=== PATIENT | female | born 1985 | race Caucasian/White ===

== ENCOUNTER 2016-10-16 16:39 | Emergency (ER) ==
[2016-10-16 16:53] VITALS: BP 125/79; TEMP 100.3; BMI 18.7
--- NOTE | 2016-10-16 16:54 | ED.PDOC ---
General ED Provider: Dr. MADDI WEST JR Chief Complaint: Fever Stated Complaint: daughter seen in er past weekend--has strep--pt started running fever with sl cough yesterday--feels soa at times-- denies sore throat-- at this time with due date 04/17/17[End]100.3 113 20 98% 125/79 6/10 myalgia fever cough Time Seen by Physician: 16:51 Mode of Arrival: Walk-In Information Source: Patient Exam Limitations: No limitations Nursing and Triage Documentation Reviewed and Agree: No Review of Systems - Review Of Systems Constitutional: Reports: No symptoms Eyes: Reports: No symptoms Ears, Nose, Mouth, Throat: Reports: Throat pain Respiratory: Reports: Cough, Short of air Cardiac: Reports: No symptoms GI: Reports: No symptoms : Reports: Flank pain (tenderness) Musculoskeletal: Reports: No symptoms Skin: Reports: No symptoms Neurological: Reports: No symptoms Endocrine: Reports: No symptoms Hematologic/Lymphatic: Reports: No symptoms All Other Systems: Other Past Medical History - Past Medical History Previously Healthy: Yes Endocrine: Reports: None Cardiovascular: Reports: None Respiratory: Reports: None Hematological: Reports: None Gastrointestinal: Reports: None Genitourinary: Reports: None Neuro/Psych: Reports: None Musculoskeletal: Reports: None Cancer: Reports: None Last Menstrual Period: jun 2016 - Surgical History General Surgical History: Reports: None - Family History Family History: Reports: Unknown (daughter with strep) - Social History Smoking Status: Never smoker Hx Substance Use: No Alcohol Screening: None Physical Exam - Physical Exam Appearance: Well-appearing, Thin Ill-appearing: Mild Pain Distress: Mild Eyes: RAJ, EOMI, Conjunctiva clear ENT: Ears normal, Nose normal, Oropharynx normal Neck: Supple Respiratory: Airway patent, Breath sounds clear, Breath sounds equal, Respirations nonlabored Cardiovascular: RRR, Pulses normal, No rub, No murmur GI/: Soft, Tender (right flank) Musculoskeletal: Normal strength, ROM intact, No edema, No calf tenderness Skin: Warm, Dry, Normal color Neurological: Sensation intact, Motor intact, Reflexes intact, Cranial nerves intact, Alert, Oriented Psychiatric: Affect appropriate, Mood appropriate Critical Care Note - Critical Care Note Total Time (mins): 0 Course - Course Orders, Labs, Meds: Orders Category Date Time Status RAPID FLU A/B Stat LAB 10/16/16 16:49 Uncollected STREP SCREEN Stat LAB 10/16/16 16:49 Uncollected Vital Signs: Temp Pulse Resp BP Pulse Ox 10/16/16 16:40 100.3 F H 113 H 20 125/79 98 Departure - Departure Time of Disposition: 16:59 Disposition: HOME SELF-CARE Discharge Problem: Viral syndrome, Strep throat exposure Instructions: Pharyngitis (ED), Viral Syndrome (ED), Dehydration (ED) Condition: Good Pt referred to PMD for follow-up: Yes Additional Instructions: Tylenol for fever increase fluids, 6- 8 eight ounce cups clear liquids daily hold off antibiotics check strep test may use phenergan for nausea Prescriptions: Amoxicillin [Amoxil] 500 mg PO Q8HR #30 capsule Promethazine HCl [Phenergan Tab] 25 mg PO QID PRN #12 tablet PRN Reason: Nausea / Vomiting Allergies/Adverse Reactions: Allergies No Known Allergies Allergy (Verified 10/16/16 16:46) Home Medications: Ambulatory Orders Amoxicillin [Amoxil] 500 mg PO Q8HR #30 capsule 10/16/16 Vit W-Ca,Fe,FA(<1 mg) [ Vitamins] 1 each PO DAILY 10/16/16 Promethazine HCl [Phenergan Tab] 25 mg PO QID PRN #12 tablet 10/16/16
[2016-10-16] MEDS ORDERED: TYLENOL PO STA (16:58)
[2016-10-16 17:15] LABS: BILIRUBIN,URINE Negative (NEGATIVE); KETONES,URINE 1+ (NEGATIVE); LEUKOCYTE ESTERASE ,URINE Negative (NEGATIVE); NITRITE,URINE Negative (NEGATIVE); PROTEIN,URINE Negative (NEGATIVE); URINE, BLOOD Negative (NEGATIVE)
[2016-10-16 17:17] LABS: ADD URINE MICROSCOPIC NO
[2016-10-16 17:27] LABS: FLU INTERNAL QC INTERNAL QC VALID; RAPID FLU A NEGATIVE (NEGATIVE); RAPID FLU B NEGATIVE (NEGATIVE)
== END 2016-10-16 17:50 | disposition home or self-care (01) ==
LOC: ED 16:39
DX: B34.9 Viral infection, unspecified (principal); Z20.818 Contact with and (suspected) exposure to other bacterial communicable diseases; R50.9 Fever, unspecified; M54.5 Low back pain; Z33.1 Pregnant state, incidental
CPT/HCPCS: 81001; 87651; 87804; 87880; 99283

== ENCOUNTER 2018-04-05 15:30 | Emergency (ER) | payer OTHER ==
[2018-04-05 15:50] VITALS: BP 124/78; TEMP 98.2; BMI 19.7
[2018-04-05] MEDS ORDERED: LIDOCAINE HCL 1% SDV SUBCUT STA (15:59)
--- NOTE | 2018-04-05 16:23 | ED.PDOC ---
General ED Provider: Dr. BRE DIAS Chief Complaint: Finger Laceration Stated Complaint: Ney is a 32 year old female who comes to the ER with right 4th finger laceation from trying to pull a shirt from her dog. Time Seen by Physician: 15:00 Mode of Arrival: Walk-In Information Source: Patient Primary Care Provider: MAYTE YOUNG Nursing and Triage Documentation Reviewed and Agree: Yes Does patient meet sepsis criteria?: No System Inflammatory Response Syndrome: Not Applicable Sepsis Protocol: For patient's 13 years and over: Temp is 96.8 and below OR 101 and greater Pulse >90 BPM Resp >20/minute Acutely Altered Mental Status Are patient's symptoms suggestive of a new infection, such as: -Pneumonia -Skin, Soft Tissue -Endocarditis -UTI -Bone, Joint Infection -Implantable Device -Acute Abdominal Infection -Wound Infection -Meningitis -Blood Stream Catheter Infection -Unknown Skin Complaint Exam - Laceration/Abrasion/Hand Complaint/Exam Location of Injury: Right, Digit #4 Mechanism of Injury: Laceration Onset/Duration: Just prior to arrival Symptoms Are: Still present Initial Severity: Moderate Current Severity: Mild Aggravating: Movement Alleviating: Compression Associated Signs and Symptoms: Denies: Fever, Chills, Erythema, Numbness, Tingling Related History: Reports: Right hand dominant Hand Picture: 1 - 1.75 cm laceation Differential Diagnoses: Laceration Review of Systems - Review Of Systems Constitutional: Reports: No symptoms Eyes: Reports: No symptoms Ears, Nose, Mouth, Throat: Reports: No symptoms Respiratory: Reports: No symptoms Cardiac: Reports: No symptoms GI: Reports: No symptoms : Reports: No symptoms Skin: Reports: Other (Laceation 4th finger tip ) Neurological: Reports: No symptoms Endocrine: Reports: No symptoms Hematologic/Lymphatic: Reports: No symptoms All Other Systems: Reviewed and Negative Past Medical History - Past Medical History Previously Healthy: Yes Endocrine: Reports: None Cardiovascular: Reports: None Respiratory: Reports: None Hematological: Reports: None Gastrointestinal: Reports: None Genitourinary: Reports: None Neuro/Psych: Reports: None Musculoskeletal: Reports: None Cancer: Reports: None Last Menstrual Period: 1-2 weeks - Surgical History General Surgical History: Reports: None - Family History Family History: Reports: Unknown (daughter with strep) - Social History Smoking Status: Never smoker Hx Substance Use: No Alcohol Screening: None - Immunizations Tetanus Shot up to Date: Yes (1 1/2 years) Physical Exam - Physical Exam Appearance: Well-appearing Skin: Warm, Dry Psychiatric: Anxious Procedures - Laceration/Wound Repair Right ring finger Wound Description: Linear Wound Length (cm): 1.75 Wound Width: 0.3 Wound Depth: 0.1 Wound Explored: Clean Wound Irrigated: No Wound Prep: Hibiclens Anesthesia: Lidocaine Wound Repaired With: Sutures Suture Size and Type: 4.0 prolene Number of Sutures: 5 (Running ) Layer Closure?: No Sterile Dressing Applied?: Yes Progress: tolerated well Critical Care Note - Critical Care Note Total Time (mins): 0 Course - Course Orders, Labs, Meds: Orders Category Date Time Status Lidocaine HCl/Pf [Lidocaine HCl 1% Sdv] MEDS 04/05/18 15:59 Discontinued 5 ml SUBCUT ONCE STA Medications Discontinued Medications Generic Name Dose Route Start Last Admin Trade Name Freq PRN Reason Stop Dose Admin Lidocaine HCl 5 ml 04/05/18 15:59 Lidocaine Hcl 1% Sdv SUBCUT 04/05/18 16:00 ONCE STA Vital Signs: Temp Pulse Resp BP Pulse Ox 04/05/18 15:33 98.2 F 82 18 124/78 98 Departure - Departure Time of Disposition: 16:28 Disposition: HOME SELF-CARE Discharge Problem: Laceration of finger Instructions: Finger Laceration (ED) Condition: Stable Pt referred to PMD for follow-up: Yes IPMP verified?: No Additional Instructions: Keep wound clean and Dry follow up with PCP in 7-10 days to have sutures removed. Report any signs of infection, pain or swelling Allergies/Adverse Reactions: Allergies No Known Allergies Allergy (Verified 04/05/18 15:39) Home Medications: Ambulatory Orders 1 [No Reported Medications] 04/05/18 Disposition Discussed With: Patient
== END 2018-04-05 16:36 | disposition home or self-care (01) ==
LOC: ED 15:30
DX: S61.214A Laceration without foreign body of right ring finger without damage to nail, initial encounter (principal); W45.8XXA Other foreign body or object entering through skin, initial encounter
CPT/HCPCS: 99283